=== PATIENT | female | born 1985 | race Hispanic/Latino ===

== ENCOUNTER 2017-08-10 19:23 | Emergency (ER) | payer MEDICAID, OTHER ==
[~2017-08-10 19:23] MED LIST: IBUP-2077 PO; LEVO500T2 PO; SULF1TAB42 PO; bactrim PO
[2017-08-10 20:10] LABS: BASOPHILS % (AUTO) 0.6 % (0.0-5.0); EOSINOPHILS % (AUTO) 1.1 % (0.0-8.0); HEMATOCRIT 39.4 % (36-48); MEAN CORPUSCULAR HEMOGLOBIN 34.1 pg (27.0-33.0); MEAN CORPUSCULAR HGB CONC 35.4 g/dL (32.0-36.0); MEAN CORPUSCULAR VOLUME 96.3 fL (79-99); MONOCYTES % (AUTO) 5.3 % (3.0-13.0); PLATELET COUNT (AUTO) 323 K/uL (130-400); RED CELL DISTRIBUTION WIDTH 12.3 % (11.0-15.5); WHITE BLOOD COUNT (AUTO) 13.1 K/uL (4.8-10.8)
== END 2017-08-10 21:31 | disposition home or self-care (01) ==
LOC: EDH 19:23
DX: O20.0 Threatened abortion (principal); Z3A.01 Less than 8 weeks gestation of pregnancy; Z87.891 Personal history of nicotine dependence
CPT/HCPCS: 36415; 76817; 84702; 85025; 86900; 86901